=== PATIENT | female | born 1975 | race Two or more races ===

== ENCOUNTER 2016-06-16 13:52 | Emergency (ER) | payer OTHER, BC ==
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
== END 2016-06-16 17:55 | disposition home or self-care (01) ==
LOC: ED 13:52
DX: S80.01XD Contusion of right knee, subsequent encounter (principal); R07.89 Other chest pain; V89.2XXD Person injured in unspecified motor-vehicle accident, traffic, subsequent encounter

== ENCOUNTER 2016-09-13 10:00 | Day surgery (SDC) | payer BC ==
--- NOTE | 2016-09-12 18:20 | HP ---
DUANE CASTRO DATE OF SCHEDULED ADMISSION: September 13, 2016 PREOPERATIVE DIAGNOSIS: Missed . OPERATION PLANNED: Suction dilation and curettage. HISTORY: The patient is a 41-year-old 4, para 3, woman currently at ten weeks gestation by dates. She came in a few days ago for a routine OB visit. We did an ultrasound. It confirmed heartbeat and found that the fetus had stopped growing about a week before and had no heartbeat. This was confirmed with another ultrasound at [facility] later the same day. We discussed options, and the patient is very emotionally upset and wants the dealt with and wanted to have a dilation and curettage as soon as possible. PAST MEDICAL HISTORY: Patient denies major medical problems. PAST SURGICAL HISTORY: None. OB HISTORY: Three vaginal deliveries. SOCIAL HISTORY: Patient speaks Macedonian. Does not smoke. CURRENT MEDICATIONS: Vitamins. ALLERGIES: NONE. REVIEW OF SYSTEMS: Patient denies any vaginal bleeding, pain, fever, chills, nausea, vomiting, diarrhea, or constipation. PHYSICAL EXAMINATION: GENERAL: She is a heavyset woman weighing 206 pounds. VITAL SIGNS: Blood pressure is 110/72. HEENT: Normal. LUNGS: Clear. HEART: Normal S1 and S2. ABDOMEN: Soft. PELVIC: External genitalia and vagina are normal. Cervix, no motion tenderness. Her uterus is about 8 to 9 week size. Adnexa nontender, no masses. IMPRESSION: The impression is a patient with missed at about nine weeks. PLAN: The plan is to do a suction dilation and curettage.
[2016-09-13] MEDS ORDERED: LACTATED RINGERS 1,000 ML ONE (11:08)
[2016-09-13] MEDS ORDERED: IV START KIT ONE (11:08)
[2016-09-13] MEDS ORDERED: MIDAZOLAM HCL 1 MG/ML 2ML VIAL ONE ×2 (12:18→13:11)
[2016-09-13] MEDS ORDERED: ONDANSETRON 4 MG/2ML 2 ML VIAL ONE (12:20)
[2016-09-13] MEDS ORDERED: FENTANYL 100 MCG/2 ML VIAL ONE ×2 (12:20→13:24)
[2016-09-13] MEDS ORDERED: LIDOCAINE 2% (PRES FREE) 5 ML VIAL ONE (12:20)
[2016-09-13] MEDS ORDERED: PROPOFOL 20 ML IV ONE ×2 (12:20→13:27)
[2016-09-13] MEDS ORDERED: OXYTOCIN 10 UNITS/ML VIAL ONE (13:26)
[2016-09-13] MEDS ORDERED: KETOROLAC TROMETHAMINE 30 MG/ML 1 ML VIAL ONE (13:31)
[2016-09-13] MEDS ORDERED: PROMETHAZINE HCL 25 MG/ML VIAL IM ONE (13:50)
[2016-09-13] MEDS ORDERED: MORPHINE SULFATE 2 MG/ML SYRINGE IV PRN (13:50)
[2016-09-13] MEDS ORDERED: ONDANSETRON 4 MG/2ML 2 ML VIAL IV PRN (13:50)
[2016-09-13] MEDS ORDERED: KETOROLAC TROMETHAMINE 30 MG/ML 1 ML VIAL IV PRN (13:50)
[2016-09-13] MEDS ORDERED: HYDROCODONE/ACETAMINOPHEN 5/325MG TABLET PO PRN (13:50)
--- NOTE | 2016-09-13 20:09 | OP ---
DUANE CASTRO [id number] DATE OF SERVICE: 09/13/2016 PREOPERATIVE DIAGNOSIS: Missed . POSTOPERATIVE DIAGNOSIS: Missed . OPERATION PERFORMED: SUCTION D&C. PROCEDURE: The patient was taken to the operating room and general anesthesia was administered. She was placed in the dorsal lithotomy position, prepped and draped in the usual sterile fashion. Bimanual exam showed an eight to nine week sized uterus. There is a cervix prolapse that is almost to the introitus. The anterior lip of the cervix was grasped with a ring forceps. The cervix was progressively dilated to a size 9 Hegar dilator. A size 9 suction curette was used to curettage the uterine cavity, producing fluid and tissue. Polyp forceps were used to ensure the cavity was clean and empty. Hemostasis was good. All instruments were removed. The patient tolerated the procedure well and was taken to the recovery room in stable condition. All sponge, instrument and needle counts were correct. Estimated blood loss was 20 mL.
--- NOTE | 2016-09-18 09:00 | SURGPATH ---
[facility] [address] [place] [id number] Patient Name: DUANE CASTRO MR#: [id number] : 1975 Gender: F Specimen #: [id number] Collected: 09/13/2016 Received: 09/15/2016 Reported: 09/18/2016 Submitting Phys: MICHELE PRADO Copy To Phys: [facility] Clinical History / Pre-Operative Diagnosis: Missed Specimen Source / Surgical Procedure Performed: Products of conception Interpretation: PRODUCTS OF CONCEPTION: - INFLAMED DECIDUA AND IMMATURE CHORIONIC VILLI Electronically Signed Out Aung Groves M.D. Gross Description: The specimen is received in a formalin filled container labeled with the patient's name and "products of conception". An aggregate of collins tissue admixed with hemorrhagic material is 7.5 x 6.0 x 3.0 cm. Included is spongy, membranous placenta-like tissue. No grossly recognizable tissue is appreciated. Two front desk representative sections are submitted in one cassette. Brennan Nichols Microscopic Description: The sections show inflamed decidua and immature chorionic villi. 1: [id number] O02.1
== END 2016-09-13 15:40 | disposition home or self-care (01) ==
LOC: SDC 10:00
PROVIDERS: ATTEND Obstetrics & Gynecology
PROC: 10D17ZZ Extraction of Products of Conception, Retained, Via Natural or Artificial Opening (ICD-10-PCS; principal; 2016-09-13)
DX: O02.1 Missed abortion (principal); Z3A.08 8 weeks gestation of pregnancy
CPT/HCPCS: 59820; J3010 ×2; J2550; J2590; J1885; J2250 ×2; J2405; J7120